=== PATIENT | male | born 1945 | race Caucasian/White ===

== ENCOUNTER 2024-11-28 22:01 | Emergency (ER) | payer MEDICARE ==
[~2024-11-28] VITALS: Ht 188 cm; Wt 84.0 kg
[2024-11-28] VITALS (8 sets, daily range): BP systolic 118–163; BP diastolic 77–87
[2024-11-28] MEDS ORDERED: SODIUM CHLORIDE 0.9% 1,000 ML IV ONE (22:05)
[2024-11-28] MEDS ORDERED: ELIQUIS5 MG PO (22:09)
[2024-11-28] MEDS ORDERED: PROTONIX40 M2 PO (22:10)
[2024-11-28] MEDS ORDERED: CARVEDILOL25 MG PO (22:10)
[2024-11-28] MEDS ORDERED: KEPPRA500 M2 PO (22:11)
[2024-11-28] MEDS ORDERED: CRESTOR20 MG PO (22:12)
[2024-11-28] MEDS ORDERED: ZOLOFT50 MG PO (22:12)
[2024-11-28] MEDS ORDERED: PRIMIDONE50 MG PO (22:13)
[2024-11-28] MEDS ORDERED: TRAMADOL HYDROC50 M1 PO (22:14)
[2024-11-28] MEDS ORDERED: VITAMIN D-32000 UNI1 PO (22:15)
[2024-11-28] MEDS ORDERED: VITAMIN C PO (22:16)
[2024-11-28] MEDS ORDERED: ZINC PO (22:16)
[2024-11-28 22:46] LABS: BASO% 0.4 % (0-3); EOS% 0.7 % (0-8); HEMATOCRIT 35.4 % (39.0-50.0); IMMATURE GRANULOCYTES 0.5 % (0.0-5.0); LYMPH% 12.5 % (15-41); MEAN CELL VOLUME 92.4 fL CALC (80.0-100.0); MEAN CORPUSCULAR HGB 31.3 pG CALC (26.0-32.0); MEAN CORPUSCULAR HGB CONC 33.9 g/dL CAL (32.0-36.0); MONO% 6.2 % (2-13); NEUT# 7.91 thou/uL (1.82-7.42); NEUT% 79.7 % (42-76); RED BLOOD COUNT 3.83 mill/uL (4.70-6.10)
[2024-11-28 22:56] LABS: ALBUMIN 3.9 g/dL (3.2-5.0); ALKALINE PHOSPHATASE 72 u/l (38-126); ANION GAP 11 (6-22 (CALC)); BILIRUBIN, TOTAL 0.8 mg/dL (0.2-1.3); BUN 17 mg/dL (8-23); BUN/CREATININE RATIO 14 (12-20 (CALC)); CARBON DIOXIDE 27 mmol/l (22-30); CHLORIDE 99 mmol/l (95-108); CPK 22 u/l (55-170); CREATININE 1.2 mg/dL (0.7-1.3); ESTIMATED GFR 61 ML/MIN (>=90 (CALC)); MAGNESIUM 2.3 mg/dL (1.6-2.3); POTASSIUM 3.9 mmol/l (3.5-5.1); SGOT/AST 34 u/l (19-48); SODIUM 133 mmol/l (137-146); TOTAL PROTEIN 6.4 g/dL (6.3-8.2)
[2024-11-28 22:59] LABS: ACT PARTIAL THROMBO TIME 33.9 SECONDS (20.0-32.5); INTERNATIONAL NORMALIZED RATIO 1.1 RATIO (0.7-1.3)
[2024-11-28 23:12] LABS: PROTHROMBIN TIME 11.8 SECONDS (9.0-12.5)
[2024-11-28 23:44] LABS: URINE BILIRUBIN - DIPSTICK Negative (NEGATIVE); URINE BLOOD DIPSTICK Small (NEGATIVE); URINE KETONE Negative (NEGATIVE); URINE LEUK ESTERASE Trace (NEGATIVE); URINE NITRITE - DIPSTICK Negative (Negative); URINE PH 5.5 (4.5-8.0); URINE PROTEIN - DIPSTICK 30 mg/dL (NEG-TRACE); URINE UROBILINOGEN - DIPSTICK 0.2 E.U./dL (0.2)
[2024-11-28 23:53] LABS: URINE COLOR Yellow
[2024-11-28 23:54] LABS: URINE GLUCOSE - DIPSTICK Negative (NEGATIVE)
[2024-11-28 23:56] LABS: URINE EPITHELIAL CELLS MODERATE EPI/hpf (0-FEW)
[2024-11-28 23:57] LABS: URINE BACTERIA MODERATE hpf; URINE COARSE GRANULAR CAST FEW lpf; URINE FINE GRAN CAST FEW lpf; URINE HYALINE CAST FEW lpf (NONE-RARE); URINE MUCUS MODERATE hpf (NONE-FEW)
[2024-11-29 00:01] VITALS: BP 164/105
[2024-11-29 00:31] VITALS: BP 177/95
[2024-11-29 00:35] VITALS: BP 170/99
[2024-11-29 01:03] VITALS: BP 164/98
[2024-11-29 01:44] VITALS: BP 164/98
== END 2024-11-29 01:44 | disposition home or self-care (01) ==
LOC: ED 22:01
PROVIDERS: Family Medicine
DX: I69.998 Other sequelae following unspecified cerebrovascular disease (principal); R53.1 Weakness; H53.9 Unspecified visual disturbance; I10 Essential (primary) hypertension; G40.909 Epilepsy, unspecified, not intractable, without status epilepticus; I48.91 Unspecified atrial fibrillation; Z79.01 Long term (current) use of anticoagulants; Z20.822 Contact with and (suspected) exposure to COVID-19